=== PATIENT | female | born 1995 | race Caucasian/White ===

== ENCOUNTER 2023-09-06 07:40 | Emergency (ER) | payer OTHER ==
[2023-09-06 07:40] VITALS: PULSE 0
[2023-09-06] MEDS ORDERED: EPINEPHrine 1 MG/10 ML (1:10,000) SYRINGE IV ONE ×4 (07:41→07:58)
[2023-09-06] MEDS ORDERED: Sodium Bicarbonate 8.4% 50 MEQ/50 ML SYRINGE IV ONE (07:42)
--- NOTE | 2023-09-06 10:40 | NUR ---
Initial visit with patient's mother following Patient's . 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 She thanked [employer] and let her know she would contact her if needed.
--- NOTE | 2023-09-06 13:32 | NUR ---
[facility] called to say, they were not persuing eye donation.
--- NOTE | 2023-09-06 13:47 | NUR ---
solid waste collection worker met with patient's mother, Marisol Hernández #[phone], her partner and then with Marisol's sister to offer support as patient presented code blue and . Worker offered systems test analyst support and Marisol states that her partner used to be a systems test analyst. Mother, her partner, and mother's sister spent time with patient and state that patient's father is driving from [place], [place] and is aware that patient has . Patient has a sister in [place] and she is also aware that patient is . Marisol agrees to an autopsy to determine patient's cause of . Worker advised that patient will transfer to [facility] for an autopsy on 09/07/23 and will need to know the home on 09/07/23. Marisol and worker discuss the local options for homes and Marisol states that she will make a home choice when patient's father arives later today. Skin Drier Mindy with the [facility] systems test analyst services was called by worker and met with mother. Mother and family left the hospital and will call this worker when they determine what home is desired.
--- NOTE | 2023-09-07 11:13 | NUR ---
Patient's mother, Marisol left a message on the evening of 09/06/23 that they have [facility] [place]. On this date, social work supervisor contacted [facility] and also Tom at [facility] and advised of family preference. Tom stated they have communicated with patient's family and are meeting with them today. Tom stated he had just received a call from the sewer bricklayer's office as well.
== END 2023-09-06 10:24 | disposition expired ==
LOC: COL.ER 07:40
DX: I46.9 Cardiac arrest, cause unspecified (principal)
CPT/HCPCS: J0171; J3101